=== PATIENT | male | born 1960 | race American Indian/Alaskan Native ===

== ENCOUNTER 2017-01-22 02:25 | Emergency (ER) | payer BC, MEDICAID ==
[2017-01-22 02:26] VITALS: BMI 23.1
[2017-01-22 02:56] VITALS: BP 151/77; PULSE 98; RESP 18; TEMP 97; O2SAT 98
--- NOTE | 2017-01-22 03:07 | ED PDOC ---
HPI: General Adult Time Seen by Provider: 01/22/17 02:50 Chief Complaint (Nursing): Eye Problem Chief Complaint (Provider): itching History Per: Patient History/Exam Limitations: no limitations Onset/Duration Of Symptoms: Mins Have you had recent travel within the past 21 days to any of the following countries: [place], [place], [place] or [place]?: No Current Symptoms Are (Timing): Still Present Additional Complaint(s): 56yo male well known to this facility for chronic pain and hx of temporal arteritis and itching presents to the ED with c/o itching. Patient requesting Benadryl IM and notes he took nothing [facility]. Patient further reports he has had pain to his neck since he hurt C1 and C2 and no change since that time. Denies vision changes, headache, or any other medical complaints. Past Medical History Reviewed: Historical Data, Nursing Documentation, Vital Signs Vital Signs: Last Vital Signs Temp 97 F L 01/22/17 02:53 Pulse 98 H 01/22/17 02:53 Resp 18 01/22/17 02:53 BP 151/77 H 01/22/17 02:53 Pulse Ox 98 01/22/17 03:44 - Medical History PMH: Anemia, Anxiety, Arthritis, Asthma, Back Problems, Depression, Deep Vein Thrombosis, Fractures, HIV, HTN, Pancreatitis, Pneumonia (2016), Post Traumatic Stress Disorder, Pulmonary Embolism, TIA, Chronic Pain (Right Shoulder) Denies: Chronic Kidney Disease Other PMH: temporal arteritis, itching - Surgical History Surgical History: Back Surgery - Family History Family History: States: No Known Family Hx - Immunization History Hx Tetanus Toxoid Vaccination: No Hx Influenza Vaccination: Yes Hx Pneumococcal Vaccination: Yes - Home Medications Home Medications: Ambulatory Orders Medication Instructions Recorded Albuterol HFA [Ventolin HFA 90 2 puff IH Q4 PRN #0 inhaler 05/08/16 mcg/actuation (8 g)] Fluconazole [Diflucan] 100 mg PO DAILY #0 tablet 05/08/16 Fluticasone/Salmeterol 250/50 1 puff IH Q12H #0 puff 05/08/16 [Advair Diskus 250/50] Gabapentin [Neurontin] 400 mg PO TID #0 cap 05/08/16 Lorazepam [Ativan] 1 mg PO BID PRN #0 tablet 05/08/16 QUEtiapine [SEROquel] 200 mg PO HS #0 tab 05/08/16 oxyCODONE/Acetaminophen [Percocet 2 tab PO Q4 PRN #0 tab 05/08/16 5/325 mg Tab] Abacavir Sulfate/Lamivudine 100 mg PO DAILY 08/11/16 [Epzicom] Citalopram Hydrobromide [Celexa] 40 mg PO DAILY 08/11/16 HYDROmorphone [Dilaudid] 4 mg PO PRN PRN 08/11/16 Prazosin [Minipress] 2 mg PO DAILY 08/11/16 Prednisone [Deltasone] 90 mg PO DAILY 08/11/16 Raltegravir Potassium [Isentress] 400 mg PO BID 08/11/16 - Allergies Allergies/Adverse Reactions: Allergies Allergy/AdvReac Type Severity Reaction Status Date / Time sulfamethoxazole Allergy Intermediate ANGIOEDEMA Verified 01/17/17 11:42 [From Bactrim] trimethoprim [From Bactrim] Allergy Intermediate ANGIOEDEMA Verified 01/17/17 11 :42 morphine Allergy RASH Verified 01/17/17 11:42 Review of Systems ROS Statement: Except As Marked, All Systems Reviewed And Found Negative Eyes: Negative for: Vision Change Musculoskeletal: Positive for: Neck Pain Skin: Positive for: Other (itching ) Neurological: Negative for: Headache Physical Exam - Reviewed Nursing Documentation Reviewed: Yes Vital Signs Reviewed: Yes - Physical Exam Appears: Positive for: Well, No Acute Distress Head Exam: Positive for: ATRAUMATIC, NORMAL INSPECTION, NORMOCEPHALIC Skin: Positive for: Normal Color, Warm, Dry. Negative for: Rash (patient scratching, but no rash ) Eye Exam: Positive for: Normal appearance Neck: Positive for: Normal (c-collar on, but patient moving with no pain ), Painless ROM Extremity: Positive for: Normal ROM. Negative for: Deformity, Swelling Neurologic/Psych: Positive for: Alert, Oriented, Gait (ambulating around ED w/ steady gait ). Negative for: Motor/Sensory Deficits - ECG O2 Sat by Pulse Oximetry: 98 Pulse Ox Interpretation: Normal (RA) Medical Decision Making Medical Decision Makin: Impression: chronic pruritis, chronic pain Plan: Patient given Benadryl PO and told he can buy Benadryl over the counter. Patient stable for d/c. Scribe Attestation: Documented by David Schwab acting as a scribe for Veto Díaz PA-C. Provider Scribe Attestation: All medical record entries made by the Scribe were at my direction and personally dictated by me. I have reviewed the chart and agree that the record accurately reflects my personal performance of the history, physical exam, medical decision making, and the department course for this patient. I have also personally directed, reviewed, and agree with the discharge instructions and disposition. Disposition - Clinical Impression Clinical Impression: Pruritus - Patient ED Disposition Is Patient to be Admitted: No - Disposition Disposition: Routine/Home Disposition Time: 03:20 Condition: STABLE Additional Instructions: benadryl is over the counter and will help with your chronic itch, take as directed follow up without fail with your doctor. Instructions: Itchy Skin (ED) Print Language: MALAWIAN
== END 2017-01-22 03:21 | disposition home or self-care (01) ==
LOC: H.ER 02:25
DX: L29.9 Pruritus, unspecified (principal)

== ENCOUNTER 2018-04-02 17:01 | Emergency (ER) | payer MEDICAID, OTHER ==
[2018-04-02 17:01] VITALS: BMI 25.7
[2018-04-02 17:07] VITALS: BP 129/83; PULSE 99; RESP 16; TEMP 97.3; O2SAT 100
--- NOTE | 2018-04-02 19:35 | ED PDOC ---
Arrival/HPI - General Chief Complaint: Pain, Chronic Time Seen by Provider: 04/02/18 17:08 Historian: Patient - History of Present Illness Associated Symptoms (Text): Pt. states 6 months ago he sustained fracture to the neck. Reports that he is scheduled to see a nursing specialist 50 days from today. C/O neck pain that has been constant for the past 6 months. Denies numbness, tingling, other injury. Past Medical History - Provider Review Nursing Documentation Reviewed: Yes - Infectious Disease Hx of Infectious Diseases: None - Tetanus Immunization Tetanus Immunization: Unknown - Cardiac Hx Hypertension: Yes - Pulmonary Hx Asthma: Yes Hx Pneumonia: Yes (2016) Hx Pulmonary Embolism: Yes - Neurological Hx Transient Ischemic Attacks (TIA): Yes - HEENT Hx HEENT Disorder: Yes (glasses) Other/Comment: "CHRONIC BLURRY AND DOUBLE VISION". Hx Temporal Arteritis - Renal Hx Renal Disorder: No - Endocrine/Metabolic Hx Endocrine Disorders: No - Hematological/Oncological Hx Anemia: Yes Hx Blood Transfusions: Yes - Integumentary Hx Dermatological Disorder: Yes Hx Cellulitis: Yes - Musculoskeletal/Rheumatological Hx Arthritis: Yes Hx Back Pain: Yes Hx Fractures: Yes - Gastrointestinal Hx Pancreatitis: Yes - Genitourinary/Gynecological Hx Genitourinary Disorders: No - Psychiatric Hx Anxiety: Yes Hx Depression: Yes Hx Post Traumatic Stress Disorder: Yes Hx Substance Use: No (denies) - Surgical History Hx Orthopedic Surgery: Yes (right shoulder, right hip, left shoulder) - Anesthesia Hx Anesthesia: Yes Hx Anesthesia Reactions: No Hx Malignant Hyperthermia: No - Suicidal Assessment Feels Threatened In Home Enviroment: No Family/Social History Smoking Status: Never Smoked Hx Alcohol Use: No Hx Substance Use: No (denies) Hx Substance Use Treatment: No Allergies/Home Meds Allergies/Adverse Reactions: Allergies sulfamethoxazole [From Bactrim] Allergy (Intermediate, Verified 04/02/18 17:04) ANGIOEDEMA trimethoprim [From Bactrim] Allergy (Intermediate, Verified 04/02/18 17:04) ANGIOEDEMA morphine Allergy (Verified 04/02/18 17:04) RASH Home Medications: Home Meds Medication Instructions Recorded Confirmed Abacavir Sulfate/Lamivudine 100 mg PO DAILY 08/11/16 03/30/17 [Epzicom] Citalopram Hydrobromide [Celexa] 40 mg PO DAILY 08/11/16 03/30/17 Prazosin [Minipress] 2 mg PO DAILY 08/11/16 03/30/17 Prednisone [Deltasone] 90 mg PO DAILY 08/11/16 03/30/17 Raltegravir Potassium [Isentress] 400 mg PO BID 08/11/16 03/30/17 Physical Exam Vital Signs Temp Pulse Resp BP Pulse Ox 04/02/18 17:04 97.3 F L 99 H 16 129/83 100 - Systems Exam Head: Present: Atraumatic, Normocephalic Pupils: Present: PERRL Neck: Present: Other (No mid-line tenderness; no deformity) Medical Decision Making - Medication Orders Current Medication Orders: Discontinued Medications Ketorolac Tromethamine (Toradol) 30 mg IM ONCE ONE Stop: 04/02/18 17:57 Last Admin: 04/02/18 17:58 Dose: 30 mg MAR Pain Assessment Document 04/02/18 17:58 JS (Rec: 04/02/18 17:59 JS [id number]) Pain Reassessment Is this a pain reassessment? No Sleep Is patient sleeping during reassessment? No Presence of Pain Presence of Pain Yes Pain Scale Used Pain Scale Used Numeric Location Pain Location Body Site Neck Description Description Intermittent Intensity of Pain at present 7 Acceptable Level of Pain 3 IM Administration Charges Document 04/02/18 17:58 JS (Rec: 04/02/18 17:59 JS [id number]) Injection Site MAR Injection Site Left Deltoid Charges for Administration # of IM Administrations 1 Disposition/Present on Arrival - Present on Arrival History of DVT/PE: Yes History of Uncontrolled Diabetes: No Urinary Catheter: No History Surgical Site Infection Following: None - Disposition Have Diagnosis and Disposition been Completed?: Yes Diagnosis: Chronic neck pain Disposition: HOME/ ROUTINE Disposition Time: 17:59 Condition: STABLE Discharge Instructions (ExitCare): Chronic Neck Pain (DC) Print Language: TOGOLESE Additional Instructions: Follow up with your nursing specialist as previous scheduled without fail. Return to ED immediately if symptoms worsen. Forms: [employer] (Portuguese)
--- NOTE | 2018-04-08 12:13 | ED PDOC ---
HPI: General Adult Time Seen by Provider: 04/02/18 17:08 Chief Complaint (Nursing): Pain, Chronic History Per: Patient Additional Complaint(s): Pt. states 6 months ago he sustained fracture to the neck. Reports that he is scheduled to see a audio visual production specialist 50 days from today. C/O neck pain that has been constant for the past 6 months. Denies numbness, tingling, other injury, new trauma, chest pain, fever. Past Medical History Reviewed: Historical Data, Nursing Documentation, Vital Signs Vital Signs: Last Vital Signs Temp 97.3 F L 04/02/18 17:04 Pulse 99 H 04/02/18 17:04 Resp 16 04/02/18 17:04 BP 129/83 04/02/18 17:04 Pulse Ox 100 04/02/18 17:04 - Medical History PMH: Anemia, Anxiety, Arthritis, Asthma, Back Problems, Depression, Deep Vein Thrombosis (? per patient), Fractures, HIV, HTN, Pancreatitis, Pneumonia (2016) , Post Traumatic Stress Disorder, Pulmonary Embolism, TIA, Chronic Pain (Right Shoulder) Denies: Chronic Kidney Disease - Surgical History Surgical History: Back Surgery - Family History Family History: States: Unknown Family Hx - Immunization History Hx Tetanus Toxoid Vaccination: No Hx Influenza Vaccination: Yes Hx Pneumococcal Vaccination: Yes - Home Medications Home Medications: Ambulatory Orders Medication Instructions Recorded Albuterol HFA [Ventolin HFA 90 2 puff IH Q4 PRN #0 inhaler 05/08/16 mcg/actuation (8 g)] Fluticasone/Salmeterol 250/50 1 puff IH Q12H #0 puff 05/08/16 [Advair Diskus 250/50] Gabapentin [Neurontin] 400 mg PO TID #0 cap 05/08/16 Lorazepam [Ativan] 1 mg PO BID PRN #0 tablet 05/08/16 QUEtiapine [SEROquel] 200 mg PO HS #0 tab 05/08/16 oxyCODONE/Acetaminophen [Percocet 2 tab PO Q4 PRN #0 tab 05/08/16 5/325 mg Tab] Abacavir Sulfate/Lamivudine 100 mg PO DAILY 08/11/16 [Epzicom] Citalopram Hydrobromide [Celexa] 40 mg PO DAILY 08/11/16 Prazosin [Minipress] 2 mg PO DAILY 08/11/16 Prednisone [Deltasone] 90 mg PO DAILY 08/11/16 Raltegravir Potassium [Isentress] 400 mg PO BID 08/11/16 Naproxen 500 mg PO BID #10 tab 03/14/17 - Allergies Allergies/Adverse Reactions: Allergies Allergy/AdvReac Type Severity Reaction Status Date / Time sulfamethoxazole Allergy Intermediate ANGIOEDEMA Verified 04/02/18 17:04 [From Bactrim] trimethoprim [From Bactrim] Allergy Intermediate ANGIOEDEMA Verified 04/02/18 17 :04 Review of Systems ROS Statement: Except As Marked, All Systems Reviewed And Found Negative Musculoskeletal: Positive for: Neck Pain Physical Exam - Physical Exam Appears: Positive for: Well, Non-toxic, No Acute Distress Head Exam: Positive for: ATRAUMATIC, NORMAL INSPECTION, NORMOCEPHALIC Skin: Positive for: Normal Color, Warm. Negative for: Rash Eye Exam: Positive for: Normal appearance ENT: Positive for: Normal ENT Inspection Neck: Positive for: Normal, Painless ROM Back: Positive for: Normal Inspection, Muscle Spasm (minimal b/l paracervical). 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 Negative for: Aphasia, Facial Droop - ECG O2 Sat by Pulse Oximetry: 100 - Progress ED Course And Treament: Toradol 30mg IM ordered. On re-evaluation, pt. reports moderate analgesia. Disposition - Clinical Impression Clinical Impression: Chronic neck pain - Patient ED Disposition Is Patient to be Admitted: No - Disposition Disposition: Routine/Home Disposition Time: 17:45 Condition: STABLE Additional Instructions: Follow up with your audio visual production specialist as previous scheduled without fail. Return to ED immediately if symptoms worsen. Instructions: Chronic Neck Pain (DC) Forms: [employer] (Tunisian) Print Language: GERMAN
== END 2018-04-02 18:00 | disposition home or self-care (01) ==
LOC: H.ER 17:01
DX: M54.2 Cervicalgia (principal); G89.29 Other chronic pain; I10 Essential (primary) hypertension; J45.909 Unspecified asthma, uncomplicated; Z86.711 Personal history of pulmonary embolism; Z86.718 Personal history of other venous thrombosis and embolism
CPT/HCPCS: 96372; 99284; J1885

== ENCOUNTER 2018-04-03 10:43 | Emergency (ER) | payer OTHER ==
[2018-04-03 10:55] VITALS: BMI 22.8
[2018-04-03 10:56] VITALS: BP 123/80; PULSE 105; RESP 16; TEMP 98; O2SAT 97
[2018-04-03] MEDS ORDERED: DiphenhydrAMINE 50 mg/ml Inj IM STA (11:19)
[2018-04-03] MEDS ORDERED: DiphenhydrAMINE 50 mg/ml Inj ONE (11:27)
--- NOTE | 2018-04-03 11:52 | ED PDOC ---
HPI: General Adult Time Seen by Provider: 04/03/18 10:59 Chief Complaint (Nursing): Pain, Chronic Chief Complaint (Provider): Chronic neck pain, chronic shoulder pain History Per: Patient History/Exam Limitations: no limitations Onset/Duration Of Symptoms: Days Have you had recent travel within the past 21 days to any of the following countries: [place], [place], [place] or [place]?: No Current Symptoms Are (Timing): Still Present Additional Complaint(s): 58 yo male with history of depression, chronic neck and shoulder pain presents with neck pain. PT sates he has been taking perccoet as prescribed but it has not been helping. PT denies any new symptoms and was seen in ER yesterday. PT given toradol IM and states it did not help. Reports of neck fx reviewed. PT with chronic Fx. Pt in neck collar. Past Medical History Reviewed: Historical Data, Nursing Documentation, Vital Signs Vital Signs: Last Vital Signs Temp 98 F 04/03/18 10:55 Pulse 105 H 04/03/18 10:55 Resp 16 04/03/18 10:55 BP 123/80 04/03/18 10:55 Pulse Ox 97 04/03/18 10:55 - Medical History PMH: Anemia, Anxiety, Arthritis, Asthma, Back Problems, Depression, Deep Vein Thrombosis (? per patient), Fractures, HIV, HTN, Pancreatitis, Pneumonia (2016) , Post Traumatic Stress Disorder, Pulmonary Embolism, TIA, Chronic Pain (Right Shoulder) Denies: Chronic Kidney Disease - Surgical History Surgical History: Back Surgery - Family History Family History: States: Unknown Family Hx - Living Arrangements Living Arrangements: With Family - Social History Current smoker - smoking cessation education provided: No - Immunization History Hx Tetanus Toxoid Vaccination: No Hx Influenza Vaccination: Yes Hx Pneumococcal Vaccination: Yes - Home Medications Home Medications: Ambulatory Orders Medication Instructions Recorded Albuterol HFA [Ventolin HFA 90 2 puff IH Q4 PRN #0 inhaler 05/08/16 mcg/actuation (8 g)] Fluticasone/Salmeterol 250/50 1 puff IH Q12H #0 puff 05/08/16 [Advair Diskus 250/50] Gabapentin [Neurontin] 400 mg PO TID #0 cap 05/08/16 Lorazepam [Ativan] 1 mg PO BID PRN #0 tablet 05/08/16 QUEtiapine [SEROquel] 200 mg PO HS #0 tab 05/08/16 oxyCODONE/Acetaminophen [Percocet 2 tab PO Q4 PRN #0 tab 05/08/16 5/325 mg Tab] Abacavir Sulfate/Lamivudine 100 mg PO DAILY 08/11/16 [Epzicom] Citalopram Hydrobromide [Celexa] 40 mg PO DAILY 08/11/16 Prazosin [Minipress] 2 mg PO DAILY 08/11/16 Prednisone [Deltasone] 90 mg PO DAILY 08/11/16 Raltegravir Potassium [Isentress] 400 mg PO BID 08/11/16 Naproxen 500 mg PO BID #10 tab 03/14/17 - Allergies Allergies/Adverse Reactions: Allergies Allergy/AdvReac Type Severity Reaction Status Date / Time sulfamethoxazole Allergy Intermediate ANGIOEDEMA Verified 04/02/18 17:04 [From Bactrim] trimethoprim [From Bactrim] Allergy Intermediate ANGIOEDEMA Verified 04/02/18 17 :04 Review of Systems ROS Statement: Except As Marked, All Systems Reviewed And Found Negative Constitutional: Negative for: Fever, Chills Gastrointestinal: Negative for: Abdominal Pain Musculoskeletal: Positive for: Neck Pain Physical Exam - Reviewed Nursing Documentation Reviewed: Yes Vital Signs Reviewed: Yes - Physical Exam Appears: Positive for: Well, Non-toxic, No Acute Distress Head Exam: Positive for: ATRAUMATIC, NORMAL INSPECTION, NORMOCEPHALIC Skin: Positive for: Normal Color, Warm, DRY Eye Exam: Positive for: Normal appearance ENT: Positive for: Normal ENT Inspection Neck: Negative for: Normal (Pt states it is not to remove collar. ) Cardiovascular/Chest: Positive for: Regular Rate, Rhythm Respiratory: Positive for: CNT, Normal Breath Sounds Gastrointestinal/Abdominal: Positive for: Normal Exam, Soft Back: Positive for: Normal Inspection Extremity: Positive for: Normal ROM Neurologic/Psych: Positive for: Alert, Oriented - ECG O2 Sat by Pulse Oximetry: 97 Medical Decision Making Medical Decision Making: PT asks for sandwich in ER and washes up in the restroom. Disposition - Clinical Impression Clinical Impression: Chronic pain - Patient ED Disposition Is Patient to be Admitted: No Counseled Patient/Family Regarding: Diagnosis, Need For Followup - Disposition Referrals: Renny Rodriguez MD [Staff Provider] - Disposition: Routine/Home Disposition Time: 11:55 Condition: GOOD Instructions: Chronic Pain
== END 2018-04-03 12:33 | disposition home or self-care (01) ==
LOC: H.ER 10:43
DX: G89.29 Other chronic pain (principal); F32.9 Major depressive disorder, single episode, unspecified; F43.10 Post-traumatic stress disorder, unspecified; I10 Essential (primary) hypertension; J45.909 Unspecified asthma, uncomplicated; K85.90 Acute pancreatitis without necrosis or infection, unspecified; Z86.711 Personal history of pulmonary embolism; Z86.718 Personal history of other venous thrombosis and embolism
CPT/HCPCS: 96372; 99284; J1200; J2270

== ENCOUNTER 2018-05-23 18:30 | Emergency (ER) | payer MEDICAID ==
[2018-05-23 18:35] VITALS: BMI 27.6
[2018-05-23 18:45] VITALS: BP 134/74; RESP 19; TEMP 98.3; O2SAT 98
--- NOTE | 2018-05-23 19:10 | ED PDOC ---
HPI: General Adult Time Seen by Provider: 05/23/18 19:09 Chief Complaint (Nursing): Pain, Chronic Chief Complaint (Provider): chronic pain History Per: Patient Additional Complaint(s): 58 year old male with history of chronic neck pain presents to ED stating he is having break through pain. Patient states he is awaiting cervical spine surgery in about a month. He is currently wearing neck brace and denies any recent fall or trauma. PMD: At [facility] Past Medical History Reviewed: Historical Data, Nursing Documentation, Vital Signs Vital Signs: Last Vital Signs Temp 98.3 F 05/23/18 18:44 Pulse 103 H 05/23/18 18:44 Resp 19 05/23/18 18:44 BP 134/74 05/23/18 18:44 Pulse Ox 98 05/23/18 19:26 - Medical History PMH: Anemia, Anxiety, Arthritis, Asthma, Back Problems, Depression, Deep Vein Thrombosis (? per patient), Fractures, HIV, HTN, Pancreatitis, Pneumonia (2016) , Post Traumatic Stress Disorder, Pulmonary Embolism, TIA, Chronic Pain (Right Shoulder) - Surgical History Surgical History: Back Surgery - Family History Family History: States: No Known Family Hx - Living Arrangements Living Arrangements: With Family - Social History Current smoker - smoking cessation education provided: No Alcohol: None Drugs: Denies - Home Medications Home Medications: Ambulatory Orders Medication Instructions Recorded Albuterol HFA [Ventolin HFA 90 2 puff IH Q4 PRN #0 inhaler 05/08/16 mcg/actuation (8 g)] Fluticasone/Salmeterol 250/50 1 puff IH Q12H #0 puff 05/08/16 [Advair Diskus 250/50] Gabapentin [Neurontin] 400 mg PO TID #0 cap 05/08/16 Lorazepam [Ativan] 1 mg PO BID PRN #0 tablet 05/08/16 QUEtiapine [SEROquel] 200 mg PO HS #0 tab 05/08/16 oxyCODONE/Acetaminophen [Percocet 2 tab PO Q4 PRN #0 tab 05/08/16 5/325 mg Tab] Abacavir Sulfate/Lamivudine 100 mg PO DAILY 08/11/16 [Epzicom] Citalopram Hydrobromide [Celexa] 40 mg PO DAILY 08/11/16 Prazosin [Minipress] 2 mg PO DAILY 08/11/16 Prednisone [Deltasone] 90 mg PO DAILY 08/11/16 Raltegravir Potassium [Isentress] 400 mg PO BID 08/11/16 Naproxen 500 mg PO BID #10 tab 03/14/17 - Allergies Allergies/Adverse Reactions: Allergies Allergy/AdvReac Type Severity Reaction Status Date / Time sulfamethoxazole Allergy Intermediate ANGIOEDEMA Verified 04/02/18 17:04 [From Bactrim] trimethoprim [From Bactrim] Allergy Intermediate ANGIOEDEMA Verified 04/02/18 17 :04 Review of Systems ROS Statement: Except As Marked, All Systems Reviewed And Found Negative Constitutional: Negative for: Fever Cardiovascular: Negative for: Chest Pain Respiratory: Negative for: Cough Gastrointestinal: Negative for: Nausea Musculoskeletal: Positive for: Neck Pain (chronic) Physical Exam - Reviewed Nursing Documentation Reviewed: Yes Vital Signs Reviewed: Yes - Physical Exam Appears: Positive for: Well Skin: Positive for: Normal Color. Negative for: Rash Eye Exam: Positive for: Normal appearance Neck: Positive for: Pain On Movement Of Neck (brace in place to neck, pain noted with movement, patient will not allow brace to be removed) Neurologic/Psych: Positive for: Alert, Oriented, Gait (steady) - ECG O2 Sat by Pulse Oximetry: 98 Pulse Ox Interpretation: Normal Medical Decision Making Medical Decision Makin58 year old with chronic neck pain Plan: IM toradol Disposition - Clinical Impression Clinical Impression: Chronic neck pain - Patient ED Disposition Is Patient to be Admitted: No Counseled Patient/Family Regarding: Diagnosis, Need For Followup, Rx Given - Disposition Referrals: formerly [facility] [Outside] Disposition: Routine/Home (patient refused to sign paperwork and left discharge packet in ED.) Disposition Time: 19:22 Condition: STABLE Additional Instructions: Follow up with pain management as soon as possible. Instructions: Chronic Neck Pain (DC) Forms: [employer] (Gibraltarian)
[2018-05-23 20:17] VITALS: PULSE 91
== END 2018-05-23 19:30 | disposition home or self-care (01) ==
LOC: H.ER 18:30
DX: M54.2 Cervicalgia (principal)
CPT/HCPCS: 96372; 99283; J1885

== ENCOUNTER 2018-10-01 15:34 | Emergency (ER) | payer MEDICAID, OTHER ==
[2018-10-01 15:35] VITALS: BMI 27.6
[2018-10-01 15:51] VITALS: BP 146/78; PULSE 90; RESP 16; TEMP 97.7; O2SAT 97
--- NOTE | 2018-10-01 16:24 | ED PDOC ---
HPI: General Adult Time Seen by Provider: 10/01/18 15:56 Chief Complaint (Nursing): Back Pain Chief Complaint (Provider): Neck pain History Per: Patient History/Exam Limitations: no limitations Onset/Duration Of Symptoms: Days Current Symptoms Are (Timing): Still Present Additional Complaint(s): Artie Iqbal is a 58 year male with a past medical history of hypertension, arthritis, and back pain who is presenting to the ED for evaluation of acute on chronic neck pain. Patient states that he has a C3 and C4 fracture from previous fall. He reports that he has an upcoming appointment with Dr. Castillo for a surgical evaluation. He denies taking any medications prior to arrival and states that he has the same pain unchanged from the past. Patient denies any weakness or numbness. No new falls or trauma. PMD: none provided Past Medical History Reviewed: Historical Data, Nursing Documentation, Vital Signs Vital Signs: Last Vital Signs Temp 97.7 F 10/01/18 15:46 Pulse 90 10/01/18 15:46 Resp 16 10/01/18 15:46 BP 146/78 10/01/18 15:46 Pulse Ox 97 10/01/18 15:46 - Medical History PMH: Anemia, Anxiety, Arthritis, Asthma, Back Problems, Depression, Deep Vein Thrombosis (? per patient), Fractures, HIV, HTN, Pancreatitis, Pneumonia (2016), Post Traumatic Stress Disorder, Pulmonary Embolism, TIA, Chronic Pain (Right Shoulder) - Surgical History Surgical History: Back Surgery - Family History Family History: States: Unknown Family Hx - Home Medications Home Medications: Ambulatory Orders Medication Instructions Recorded RX: Albuterol HFA [Ventolin HFA 90 2 puff IH Q4 PRN #0 inhaler 05/08/16 mcg/actuation (8 g)] RX: Fluticasone/Salmeterol 250/50 1 puff IH Q12H #0 puff 05/08/16 [Advair Diskus 250/50] RX: Gabapentin [Neurontin] 400 mg PO TID #0 cap 05/08/16 RX: Lorazepam [Ativan] 1 mg PO BID PRN #0 tablet 05/08/16 RX: QUEtiapine [SEROquel] 200 mg PO HS #0 tab 05/08/16 RX: oxyCODONE/Acetaminophen 2 tab PO Q4 PRN #0 tab 05/08/16 [Percocet 5/325 mg Tab] Abacavir Sulfate/Lamivudine 100 mg PO DAILY 08/11/16 [Epzicom] Citalopram Hydrobromide [Celexa] 40 mg PO DAILY 08/11/16 RX: Prazosin [Minipress] 2 mg PO DAILY 08/11/16 RX: Prednisone [Deltasone] 90 mg PO DAILY 08/11/16 Raltegravir Potassium [Isentress] 400 mg PO BID 08/11/16 RX: Naproxen 500 mg PO BID #10 tab 03/14/17 Acetaminophen [Acetaminophen 8 650 mg PO Q8 PRN #21 tablet.er 10/01/18 Hour] - Allergies Allergies/Adverse Reactions: Allergies Allergy/AdvReac Type Severity Reaction Status Date / Time sulfamethoxazole Allergy Intermediate ANGIOEDEMA Verified 10/01/18 15:46 [From Bactrim] trimethoprim [From Bactrim] Allergy Intermediate ANGIOEDEMA Verified 10/01/18 15:46 Review of Systems ROS Statement: Except As Marked, All Systems Reviewed And Found Negative Musculoskeletal: Positive for: Neck Pain Neurological: Negative for: Weakness, Numbness Physical Exam - Reviewed Nursing Documentation Reviewed: Yes Vital Signs Reviewed: Yes - Physical Exam Comments: GENERAL APPEARANCE: Patient is awake, alert, oriented x 3, in no acute distress. Resting comfortably. Cervical collar in place. SKIN: Warm, dry; (-) cyanosis. NECK: Supple. (+) diffuse paracervical tenderness (+) midline cervical tenderness (-) lymphadenopathy CHEST AND RESPIRATORY: (-) rales, (-) rhonchi, (-) wheezes; breath sounds equal bilaterally. Respirations even and nonlabored. HEART AND CARDIOVASCULAR: (-) irregularity EXTREMITIES: (-) deformity NEURO AND PSYCH: Mental status as above; (-) focal findings. Gait: steady. Speech: clear. (-) facial asymmetry (-) aphasia - ECG O2 Sat by Pulse Oximetry: 97 (RA) Pulse Ox Interpretation: Normal Medical Decision Making Medical Decision Making: Time: 16:05 Impression: acute on chronic neck pain Plan: --Toradol 30 mg IM --Re-evaluation 1645 On re-evaluation, patient reports improvement of symptoms. On exam, patient remains AAOx3, in no acute distress. Lungs clear to auscultation, cardiac RRR, repeat neuro exam shows no focal findings. Vitals stable. Lab / Diagnostic results d/w the patient in great detail. Diagnosis of chronic neck pain d/w the patient. Based on history, exam and diagnostic results, plan will be for outpatient follow up as scheduled tomorrow with Dr Castillo. Patient instructed to follow-up with pmd / referral provided / the clinic in 1- 2 days without fail. Advised to take medication as prescribed. Return to the emergency room at any time for any new or worsening symptoms. Patient states he fully agrees with and understands discharge instructions. States that he agrees with the plan and disposition. Verbalized and repeated discharge instructions and plan. I have given the patient opportunity to ask any additional questions. Scribe Attestation: Documented by Karen Carson, acting as a scribe for Migdalia Mcpherson PA-C. Provider Scribe Attestation: All medical record entries made by the Scribe were at my direction and personally dictated by me. I have reviewed the chart and agree that the record accurately reflects my personal performance of the history, physical exam, medical decision making, and the department course for this patient. I have also personally directed, reviewed, and agree with the discharge instructions and disposition. Disposition - Clinical Impression Clinical Impression: Chronic neck pain, Cervical spine fracture - Patient ED Disposition Is Patient to be Admitted: No Counseled Patient/Family Regarding: Studies Performed, Diagnosis, Need For Followup, Rx Given - Disposition Referrals: Jessy Wasserman [Other] Disposition: Routine/Home Disposition Time: 16:45 Condition: STABLE Additional Instructions: FOLLOW UP WITH DR CASTILLO TOMORROW SCHEDULED. The emergency medical care you received today was directed at your acute symptoms. If you were prescribed any medication, please fill it and take as directed. It may take several days for your symptoms to resolve. Return to the Emergency Department if your symptoms worsen, do not improve, or if you have any other problems. Please contact your doctor in 2 days for re-evaluation and follow up / or call one of the physicians/clinics you have been referred to that are listed on the Patient Visit Information form that is included in your discharge packet. Bring any paperwork you were given at discharge with you along with any medications you are taking to your follow up visit. Our treatment cannot replace ongoing medical care by a primary care provider (PCP) outside of the emergency department. Prescriptions: Acetaminophen [Acetaminophen 8 Hour] 650 mg PO Q8 PRN #21 tablet.er PRN Reason: Pain, Moderate (4-7) Instructions: Neck Fracture, Neck Pain, Chronic Neck Pain (DC) Forms: [facility] (Macedonian) Print Language: TONGAN - POA Present On Arrival: None
== END 2018-10-01 16:51 | disposition home or self-care (01) ==
LOC: H.ER 15:34
DX: M54.2 Cervicalgia (principal)
CPT/HCPCS: 96372; 99282; J1885